=== PATIENT | male | born 1980 | race African-American/Black ===

== ENCOUNTER → 2022-12-17 | Outpatient (CLI) | payer BC ==
[2022-12-17 10:05] LABS: Basophils # (auto) 0 10 ^3/uL (0-0.2); Eosinophils # (auto) 0.1 10 ^3/uL (0-0.8); Hemoglobin 13.8 g/dL (13.5-17.5); Mean Corpuscular Volume 79.1 fL (80.0-100.0); Monocytes # (auto) 0.3 10 ^3/uL (0-1.3); Neutrophils # (auto) 2.4 10 ^3/uL (1.6-8.6)
[2022-12-17 10:08] LABS: Basophils % (auto) 0.3 % (0.0-2.0); Hematocrit 41.3 % (41.0-53.0); Lymphocytes # (auto) 1.5 10 ^3/uL (0.4-5.4); Lymphocytes % (auto) 34.9 % (10.0-50.0); Mean Corpuscular Hemoglobin 26.4 pg (28.0-32.0); Mean Corpuscular Hgb Conc. 33.3 g/dL (32.0-36.0); Monocytes % (auto) 7.4 % (0.0-12.0); Neutrophils % (auto) 55.4 % (37.0-80.0); Nucleated Red Blood Cells % 0.1 %; Red Blood Cells 5.22 10^6/uL (4.5-5.90); Red Cell Distribution Width 16.2 % (11.8-14.3); White Blood Cell 4.3 10^3/uL (4.4-10.8)
[2022-12-17 11:17] LABS: Albumin 4.5 g/dL (3.2-4.8); Alkaline Phosphatase 57 U/L (46-116); Aspartate Aminotransferase 14 U/L (13-40); BUN/Creatinine Ratio 7.7 (10.0-20.0); Blood Urea Nitrogen 9 mg/dL (9-23); Calcium 9.6 mg/dL (8.5-10.1); Carbon Dioxide 31 mmol/L (20-30); Cholesterol 185 mg/dL (< 200); Glucose 97 mg/dL (74-106); HDL Cholesterol 53 mg/dL (40-59); LDL Cholesterol 127 mg/dL (< 100); Triglycerides 70 mg/dL (< 150)
[2022-12-17 11:18] LABS: Alanine Aminotransferase 9 U/L (7-40); Bilirubin, Total 0.8 mg/dL (0.2-1.0); Total Protein 7.8 g/dL (5.7-8.2)
[2022-12-17 11:25] LABS: Prostate Specific Antigen 1.31 ng/mL (0.0-4.0)
[2022-12-17 11:30] LABS: Anion Gap 6 (5-15); Chloride 106 mmol/L (98-107); Follicle Stimulating Hormone 3.22 IU/L (1.4-18.1); Potassium 4.2 mmol/L (3.5-5.1); Sodium 143 mmol/L (136-145)
[2022-12-17 12:01] LABS: Leuteinizing Hormone 3.1 IU/L (1.5-9.3)
[2022-12-17 12:07] LABS: Free T4 (Free Thyroxine) 1.05 ng/dL (0.89-1.76)
[2022-12-17 14:38] LABS: Urine Bacteria NONE SEEN /hpf (None Seen); Urine Blood Negative /uL (Negative); Urine Clarity Clear (Clear); Urine Color Yellow (Yellow); Urine Mucus FEW (None Seen); Urine Protein, UAD TRACE (Negative); Urine Specific Gravity 1.022 (1.001-1.035); Urine Urobilinogen Normal (Negative); Urine WBC 1 /hpf (0 - 3)
[2022-12-18 08:06] LABS: Testosterone 519 ng/dL (264-916)
== END | disposition home or self-care (01) ==
LOC: LAB 09:42
DX: Z00.01 Encounter for general adult medical examination with abnormal findings (principal); N52.9 Male erectile dysfunction, unspecified; Z98.84 Bariatric surgery status
CPT/HCPCS: 36415; 80053; 80061; 81001; 82607; 82672; 83001; 83002; 83036; 84153; 84402; 84403; 84439; 84443; 85025